=== PATIENT | female | born 2000 | race Caucasian/White ===

== ENCOUNTER 2019-07-27 13:37 | Emergency (ER) | payer SELFPAY ==
[~2019-07-27] VITALS: Ht 170.2 cm; Wt 105.2 kg
[2019-07-27 13:50] VITALS: BP 138/91
[2019-07-27] MEDS ORDERED: diphenhydrAMINE HCL 50 MG CAPSULE ONE (14:09)
[2019-07-27] MEDS ORDERED: predniSONE 20 MG TABLET ONE (14:09)
[2019-07-27] MEDS ORDERED: FAMOTIDINE (20 MG) 20 MG TABLET ONE (14:09)
[2019-07-27] MEDS ORDERED: FAMOTIDINE (20 MG) 20 MG TABLET PO ONE (14:30)
[2019-07-27] MEDS ORDERED: predniSONE 10 MG TABLET PO ONE (14:30)
[2019-07-27] MEDS ORDERED: diphenhydrAMINE HCL 50 MG CAPSULE PO ONE (14:30)
== END 2019-07-27 15:00 | disposition home or self-care (01) ==
LOC: EDBD → ER 13:37
DX: T36.0X5A Adverse effect of penicillins, initial encounter (principal); F41.9 Anxiety disorder, unspecified; Z88.0 Allergy status to penicillin; Y92.89 Other specified places as the place of occurrence of the external cause
CPT/HCPCS: 99284; J7512; Q0163

== ENCOUNTER 2019-07-29 04:52 | Emergency (ER) | payer SELFPAY ==
[~2019-07-29] VITALS: Ht 167.6 cm; Wt 91.2 kg
--- NOTE | 2019-07-29 05:13 | NUR ---
BIBF. C/O "HAVING BURNING URINATION. PAIN. STARTED PREDNISONE RECENTLY", TO ER BED 3, URINE COLLECTED AND SENT TO LAB
[2019-07-29 05:22] LABS: APPEARANCE,URINE Slightly Cloudy (CLEAR); BILIRUBIN,URINE MODERATE (NEGATIVE); BLOOD, URINE Large Ery/uL (NEGATIVE); COLOR,URINE Red (YELLOW); KETONES,URINE Trace (NEGATIVE); LEUKOCYTE ESTERASE ,URINE Negative (NEGATIVE); NITRITE, URINE Negative (NEGATIVE); PROTEIN,URINE >=300 mg/dl (NEGATIVE); UGLUCOSE Negative (NEGATIVE)
[2019-07-29 05:51] LABS: BACTERIA,URINE Few /HPF (None Seen); RBC,URINE TOO NUMEROUS TO COUN /HPF (0-2)
[2019-07-29 05:52] LABS: SQUAMOUS EPITHELIAL CELL,UR Few /HPF (None Seen)
[2019-07-29 06:48] VITALS: BP 135/76
== END 2019-07-29 06:49 | disposition home or self-care (01) ==
LOC: ER 04:53 → EDBD 04:53 → ER 06:49
DX: N76.0 Acute vaginitis (principal); Z88.0 Allergy status to penicillin
CPT/HCPCS: 81000-TC; 84703-TC